=== PATIENT | female | born 2005 | race Hispanic/Latino ===

== ENCOUNTER 2025-01-21 16:38 | Emergency (ER) | payer SELFPAY ==
[2025-01-21] MEDS ORDERED: Ibuprofen 600 MG TAB ONE (17:10)
[2025-01-21] MEDS ORDERED: Acetaminophen 500 MG TAB ONE (17:10)
[2025-01-21 17:12] LABS: Glucose, Urine (Dipstick) Negative (Negative); Leukocyte Negative (Negative); Protein, Urine (Dipstick) Negative (Neg-Trace); Specific Gravity, Urine 1.015 (1.005-1.030)
[2025-01-21 17:15] LABS: Pregnancy Test - Urine (BHCG) Negative (Negative); Pregu Control Background? CLEAR/WHITE (CLR/WHITE); Pregu Control Bar Appear? YES (CONTROL BAR)
[2025-01-21 17:17] LABS: Bacteria/HPF 1+ HPF (None Seen); CAUTI Indications for Culture Dysuria,urgency,freq; RBC/HPF Greater than 50 HPF (0-3); WBC/HPF 0-3 HPF (0-3)
[2025-01-21 17:18] LABS: Urine Culture Reflex No No
[2025-01-21 17:21] LABS: Cocaine Metabolite Screen Negative (Negative); THC/Cannabinoid Screen Negative (Negative); Tricyclic Screen Negative (Negative)
== END 2025-01-21 18:25 | disposition home or self-care (01) ==
LOC: MADERS 16:38
DX: G44.209 Tension-type headache, unspecified, not intractable (principal); M62.838 Other muscle spasm
CPT/HCPCS: 80306; 81001; 81025; 99284